=== PATIENT | female | born 1955 | race Caucasian/White ===

== ENCOUNTER 2019-05-26 12:07 | Day surgery (SDC) | payer OTHER ==
[2019-04-30 13:33] VITALS: BMI 44.2
[2019-05-26 13:46] VITALS: TEMP 98.4
[2019-05-26 14:37] VITALS: BP 116/71; PULSE 65
--- NOTE | 2019-05-28 16:46 | PATH ---
Surgical Pathology Report Patient Name: JUANITA ROMERO [facility]. Rec. #: [id number] /Age/Gender: 1955 (Age: 63) / F Account: [id number] Location: [facility]-ENDOSCOPY Taken: 05/26/2019 Received: 05/27/2019 Reported: 05/28/2019 Physicians: James Peralta M.D. Specimen(s) Received A: ERYTHEMA IN ANTRUM B: BODY OF STOMACH C: DISTAL ESOPHAGUS Clinical History Epigastric pain postoperative diagnosis antral erythema Final Diagnosis A. ERYTHEMA IN ANTRUM, BIOPSY: GASTRIC MUCOSA WITH CHRONIC GASTRITIS. IMMUNOSTAIN FOR H. PYLORI IS NEGATIVE. NEGATIVE INTESTINAL METAPLASIA. B. BODY OF STOMACH, BIOPSY: GASTRIC MUCOSA WITH MILD CHRONIC GASTRITIS. IMMUNOSTAIN FOR H. PYLORI IS NEGATIVE. NEGATIVE FOR INTESTINAL METAPLASIA. C. DISTAL ESOPHAGUS, BIOPSY: ESOPHAGEAL MUCOSA WITH REFLUX ESOPHAGITIS. NEGATIVE FOR INTESTINAL METAPLASIA. Electronically Signed Lev Zeng M.D. Gross Description A. Received in formalin, labeled "erythema in antrum" are 2 murillo, irregular soft tissue measuring 0.3 to 0.5 cm. in greatest dimension. The specimen is submitted in toto in one cassette. B. Received in formalin, labeled "body of stomach" are 2 murillo soft tissue measuring 0.2 to 0.3 cm. in greatest dimension. The specimen is submitted in toto in one cassette. C. Received in formalin, labeled "distal esophagus" are 2 murillo, irregular soft tissue measuring 0.2 cm. in greatest dimension. The specimen is submitted in toto in one cassette. __ MATILDE/05/27/2019 ronit/05/27/2019
== END 2019-05-26 14:58 | disposition home or self-care (01) ==
LOC: JASU-ENDO 12:07
PROVIDERS: ATTEND Internal Medicine Gastroenterology
PROC: 0DB68ZX Excision of Stomach, Via Natural or Artificial Opening Endoscopic, Diagnostic (ICD-10-PCS; principal; 2019-05-26 13:00)
DX: K25.9 Gastric ulcer, unspecified as acute or chronic, without hemorrhage or perforation (principal); K31.7 Polyp of stomach and duodenum
CPT/HCPCS: 88305-TC; 88342-TC

== ENCOUNTER 2019-09-29 13:14 | Day surgery (SDC) | payer OTHER ==
[2019-09-26 13:24] VITALS: BMI 44.2
[2019-09-29 15:08] VITALS: TEMP 97.9
[2019-09-29 15:52] VITALS: BP 121/69; PULSE 79
--- NOTE | 2019-10-01 18:33 | PATH ---
Surgical Pathology Report Patient Name: JUANITA ROMERO [facility]. Rec. #: [id number] /Age/Gender: 1955 (Age: 64) / F Account: [id number] Location: [facility]-ENDOSCOPY Taken: 09/29/2019 Received: 09/30/2019 Reported: 10/01/2019 Physicians: James Peralta M.D. Specimen(s) Received A: HEPATIC FLEXURE POLYP B: CECUM POLYP Clinical History History of colon polyps Postoperative diagnosis: Colon polyps, diverticulosis Final Diagnosis A. COLON, HEPATIC FLEXURE, POLYP, POLYPECTOMY: SCANT ORGANIC DEBRIS. NO COLONIC MUCOSA/EPITHELIUM IDENTIFIED. B. CECUM, POLYP, BIOPSY: POLYPOID COLONIC MUCOSA WITH PROMINENT LYMPHOID AGGREGATES. Electronically Signed Farrah Lemos M.D. Gross Description A. Received in formalin, labeled "biopsy hepatic flexure polyp" are 2 murillo, irregular portions of soft tissue measuring 0.1 and 0.3 cm. in greatest dimension. The specimens are submitted in toto in one cassette. B. Received in formalin, labeled "cecum polyp biopsy" is a murillo, irregular portion of soft tissue measuring 0.4 cm. in greatest dimension. The specimen is submitted in toto in one cassette. /09/30/2019 saudi09/30/2019
== END 2019-09-29 15:35 | disposition home or self-care (01) ==
LOC: JASU-ENDO 13:14
PROVIDERS: ATTEND Internal Medicine Gastroenterology
PROC: 0DBH8ZX Excision of Cecum, Via Natural or Artificial Opening Endoscopic, Diagnostic (ICD-10-PCS; 2019-09-29)
PROC: 0DBL8ZX Excision of Transverse Colon, Via Natural or Artificial Opening Endoscopic, Diagnostic (ICD-10-PCS; principal; 2019-09-29 14:00)
DX: Z86.010 Personal history of colon polyps (principal); K57.30 Diverticulosis of large intestine without perforation or abscess without bleeding; D12.3 Benign neoplasm of transverse colon; D12.0 Benign neoplasm of cecum; A63.0 Anogenital (venereal) warts
CPT/HCPCS: 88305-TC

== ENCOUNTER 2020-05-25 17:43 | Emergency (ER) | payer OTHER ==
--- OUTSIDE RECORDS SUMMARY | 2020-05-25 17:47 | XMS ---
:1955 Author Organization [facility] Support Name Relationship Address Phone [facility] [place] [address] CORY ROMERO SON [address] [place] [address] Re-disclosure Warning The records that you are about to access may contain information from federally- assisted alcohol or drug abuse programs. If such information is present, then the following federally mandated warning applies: This information has been disclosed to you from records protected by federal confidentiality rules (42 CFR part 2). The federal rules prohibit you from making any further disclosure of this information unless further disclosure is expressly permitted by the written consent of the person to whom it pertains or as otherwise permitted by 42 CFR part 2. A general authorization for the release of medical or other information is NOT sufficient for this purpose. The Federal rules restrict any use of the information to criminally investigate or prosecute any alcohol or drug abuse patient.The records that you are about to access may contain highly sensitive health information, the redisclosure of which is protected by Article 27-F of the [facility] Public Health law. If you continue you may haveaccess to information: Regarding HIV / AIDS; Provided by facilities licensed or operated by the [facility] Office of Mental Health; or Provided by the [facility] Office for People With Developmental Disabilities. If such information is present, then the following [facility] mandated warning applies: This information has been disclosed to you from confidential records which are protected by state law. State law prohibits you from making any further disclosure of this information without the specific written consent of the person to whom it pertains, or as otherwise permitted by law. Any unauthorized further disclosure in violation of state law may result in a fine or senior living sentence or both. A general authorization for the release of medical or other information is NOT sufficient authorization for further disclosure. Insurance Providers Payer name Policy type Policy ID Covered Covered constitution party's Policy P nicky / Coverage constitution party ID relationship to Membreno Inf ormation type membreno HIP MEDICAID [id number] SP [id number] Results ID Date Data Source [id number] 12/22/2019 12:00:00 AM EDT [facility] Name Value Range Interpretation Code Description Data Sita rce(s) Supporting Document(s ) 2018-nCoV [facility] RNA XXX JEAN-PAUL+probe- Imp This lab was ordered by [facility] and reported by [employer]. ID Date Data Source [id number] 12/22/2019 12:00:00 AM EDT [facility] Name Value Range Interpretation Code Description Data Sita rce(s) Supporting Document(s ) 2018-nCoV [facility] RNA XXX JEAN-PAUL+probe- Imp This lab was ordered by [facility] and reported by [employer] Procedure
--- NOTE | 2020-05-25 17:59 | TELE ---
HPI Do you have fever,cough or shortness of breath?: No - General Reason For Visit: COVID TESTING History Source: Patient Past History - Medical History Allergies/Adverse Reactions: Allergies Allergy/AdvReac Type Severity Reaction Status Date / Time No Known Allergies Allergy Verified 07/27/15 14:45 Home Medications: Ambulatory Orders Aspirin [ASA -] 81 mg PO DAILY 01/26/15 Losartan Potassium 25 mg PO HS 01/26/15 Metoprolol Succinate [Toprol XL -] 25 mg PO DAILY 01/26/15 Omeprazole [Prilosec (RX)] 20 mg PO DAILY 01/26/15 Tab-A-Cheyenne 1 tab PO DAILY 01/26/15 metFORMIN HCL [Metformin ER Osmotic] 500 mg PO BID 01/26/15 Atorvastatin Ca [Lipitor] 40 mg PO HS 04/30/19 Clopidogrel Bisulfate [Plavix] 75 mg PO DAILY 04/30/19 Anemia: No Asthma: No Cancer: No Cardiac Disorders: Yes (5 STENTS 12/2018) CVA: No COPD: No CHF: No Dementia: No Diabetes: Yes (BORDERLINE) GI Disorders: Yes (H/O COLON POLYPS) Disorders: No HTN: No Hypercholesterolemia: Yes Liver Disease: Yes (FATTY LIVER) Seizures: No Thyroid Disease: Yes (HYPOTHYROID; NOT ON MEDS CURRENTLY) - Surgical History Abdominal Surgery: No Appendectomy: No Cardiac Surgery: Yes (STENTS X5) Cholecystectomy: No Lung Surgery: No Neurologic Surgery: No Orthopedic Surgery: Yes (RT CARPAL TUNNEL RELEASE) - Immunization History Immunization Up to Date: No - Psycho-Social/Smoking History Smoking Status: No Smoking History: Former smoker Have you smoked in the past 12 months: No Number of Cigarettes Smoked Daily: 0 If you are a former smoker, when did you quit?: 1980 Review of Systems - Review of Systems Constitutional: No: Fever Respiratory: No: Cough *Physical Exam - Physical Exam Respiratory/Chest: negative: Respiratory Distress Discharge Diagnosis at time of Disposition: Encounter for laboratory testing for COVID-19 virus - Referrals Follow-up Referral(s): Adryan Freire MD [Primary Care Provider] - - Patient Instructions - Discharge Disposition: HOME Condition at time of Disposition: Stable
== END 2020-05-25 17:59 | disposition home or self-care (01) ==
LOC: JVIRT 17:43
DX: Z11.59 Encounter for screening for other viral diseases (principal)
CPT/HCPCS: C9803; Q3014-GT; U0003

== ENCOUNTER 2021-04-08 04:34 | Day surgery (SDC) | payer OTHER ==
[2021-04-06 16:48] VITALS: BMI 51.2
[~2021-04-08 04:34] MED LIST: DEXAMETHASONE SOD PHOSPHATE 20 MG/5 ML VIAL IM ONE; IOHEXOL 180 MG/1 ML ML IJ ONE; LIDOCAINE HCL 1% PRESERVATIVE FREE - 30ML VIAL IJ ONE
[2021-04-08] MEDS ORDERED: LIDOCAINE HCL 1% PRESERVATIVE FREE - 30ML VIAL IJ ONE ×2 (09:28)
[2021-04-08] MEDS ORDERED: IOHEXOL 180 MG/1 ML ML IJ ONE (09:48)
[2021-04-08 10:33] VITALS: BP 90/40; PULSE 86; TEMP 98
== END 2021-04-08 10:45 | disposition home or self-care (01) ==
LOC: JASU-SURG 04:34
PROVIDERS: ATTEND Pain Medicine Pain Medicine
PROC: 3E0R3BZ Introduction of Anesthetic Agent into Spinal Canal, Percutaneous Approach (ICD-10-PCS; principal; 2021-04-08 09:15)
DX: M48.061 Spinal stenosis, lumbar region without neurogenic claudication (principal); M54.16 Radiculopathy, lumbar region; M54.5 Low back pain; Z53.8 Procedure and treatment not carried out for other reasons
CPT/HCPCS: 76000-TC-FY

== ENCOUNTER 2021-06-15 22:09 | Emergency (ER) | payer OTHER ==
[2021-06-15 22:16] VITALS: BP 105/42; PULSE 97; TEMP 98.5; BMI 44.2
[2021-06-15] MEDS ORDERED: CYCLOBENZAPRINE HCL 10 MG TABLET (FP) PO ONE (23:02)
[2021-06-15] MEDS ORDERED: KETOROLAC TROMETHAMINE 30 MG/1 ML VIAL IM ONE (23:02)
[2021-06-15] MEDS ORDERED: CYCLOBENZAPRINE HCL 10 MG TABLET (FP) ONE (23:36)
[2021-06-15] MEDS ORDERED: KETOROLAC TROMETHAMINE 30 MG/1 ML VIAL ONE (23:36)
== END 2021-06-15 23:50 | disposition home or self-care (01) ==
LOC: JER 22:09 → JERFT 22:09 → JER 23:50
PROC: 3E0233Z Introduction of Anti-inflammatory into Muscle, Percutaneous Approach (ICD-10-PCS; principal; 2021-06-15)
DX: M76.51 Patellar tendinitis, right knee (principal)
CPT/HCPCS: 73562-TC-RT-FY; 99284-25

== ENCOUNTER 2021-11-29 04:33 | Day surgery (SDC) | payer OTHER ==
[2021-11-25 16:41] VITALS: BMI 44.2
[~2021-11-29 04:33] MED LIST changes: +DEXAMETHASONE SOD PHOSPHATE 10 MG/1 ML VIAL IVPUSH ONE; -DEXAMETHASONE SOD PHOSPHATE 20 MG/5 ML VIAL IM ONE; -LIDOCAINE HCL 1% PRESERVATIVE FREE - 30ML VIAL IJ ONE
[2021-11-29] MEDS ORDERED: LIDOCAINE HCL/PF 1% SDV 5ML VIAL ONE (07:39)
[2021-11-29] MEDS ORDERED: DEXAMETHASONE SOD PHOSPHATE 10 MG/1 ML VIAL ONE (07:39)
[2021-11-29] MEDS ORDERED: LIDOCAINE HCL 1% PRESERVATIVE FREE - 30ML VIAL IJ ONE (09:34)
[2021-11-29] MEDS ORDERED: IOHEXOL 180 MG/1 ML ML IJ ONE ×2 (09:35)
[2021-11-29] MEDS ORDERED: DEXAMETHASONE SOD PHOSPHATE 10 MG/1 ML VIAL IVPUSH ONE (09:44)
[2021-11-29 11:50] VITALS: PULSE 80; TEMP 97.2
[2021-11-29 11:59] VITALS: BP 110/60
== END 2021-11-29 10:30 | disposition home or self-care (01) ==
LOC: JASU-SURG 04:33
PROVIDERS: ATTEND Pain Medicine Pain Medicine
PROC: 3E0R33Z Introduction of Anti-inflammatory into Spinal Canal, Percutaneous Approach (ICD-10-PCS; 2021-11-29)
PROC: B01BYZZ Fluoroscopy of Spinal Cord using Other Contrast (ICD-10-PCS; 2021-11-29)
PROC: 3E0R3BZ Introduction of Anesthetic Agent into Spinal Canal, Percutaneous Approach (ICD-10-PCS; principal; 2021-11-29 09:00)
DX: M54.16 Radiculopathy, lumbar region (principal); M48.061 Spinal stenosis, lumbar region without neurogenic claudication; E11.9 Type 2 diabetes mellitus without complications
CPT/HCPCS: J1100

== ENCOUNTER 2022-01-24 04:23 | Day surgery (SDC) | payer OTHER ==
[2022-01-06 10:59] VITALS: BMI 44.2
[2022-01-24] MEDS ORDERED: LIDOCAINE HCL/PF 1% SDV 5ML VIAL ONE (07:18)
[2022-01-24] MEDS ORDERED: BUPIVACAINE HCL/PF 0.75% 10 ML VIAL ONE (07:18)
[2022-01-24] MEDS ORDERED: LIDOCAINE HCL 1%, 10 MG/ML (50 mL VIAL) NR ONE (14:12)
[2022-01-24] MEDS ORDERED: BUPIVACAINE HCL/PF 0.75% 10 ML VIAL NR ONE (14:13)
[2022-01-24 15:23] VITALS: BP 111/54; PULSE 88; TEMP 98
== END 2022-01-24 15:10 | disposition home or self-care (01) ==
LOC: JASU-SURG 04:23
PROVIDERS: ATTEND Pain Medicine Pain Medicine
PROC: BR16YZZ Fluoroscopy of Lumbar Facet Joint(s) using Other Contrast (ICD-10-PCS; 2022-01-24)
PROC: 3E0T3BZ Introduction of Anesthetic Agent into Peripheral Nerves and Plexi, Percutaneous Approach (ICD-10-PCS; principal; 2022-01-24 14:00)
DX: M47.816 Spondylosis without myelopathy or radiculopathy, lumbar region (principal)
CPT/HCPCS: 76000-TC-FY

== ENCOUNTER 2022-02-21 03:55 | Day surgery (SDC) | payer OTHER ==
[2022-02-16 13:09] VITALS: BMI 44.2
[2022-02-21] MEDS ORDERED: LIDOCAINE HCL/PF 1% SDV 5ML VIAL ONE (08:06)
[2022-02-21] MEDS ORDERED: DEXAMETHASONE SOD PHOSPHATE 10 MG/1 ML VIAL ONE (08:07)
[2022-02-21] MEDS ORDERED: BUPIVACAINE HCL/PF 0.75% 10 ML VIAL ONE (08:18)
[2022-02-21] MEDS ORDERED: BUPIVACAINE HCL/PF 0.75% 10 ML VIAL NR ONE (13:14)
[2022-02-21] MEDS ORDERED: LIDOCAINE 1% P/F 10 MG/ML VIAL INF ONE (13:16)
[2022-02-21 13:52] VITALS: BP 107/59; PULSE 86; TEMP 98.2
== END 2022-02-21 13:54 | disposition home or self-care (01) ==
LOC: JASU-SURG 03:55
PROVIDERS: ATTEND Pain Medicine Pain Medicine
PROC: 3E0T33Z Introduction of Anti-inflammatory into Peripheral Nerves and Plexi, Percutaneous Approach (ICD-10-PCS; 2022-02-21)
PROC: 3E0T3BZ Introduction of Anesthetic Agent into Peripheral Nerves and Plexi, Percutaneous Approach (ICD-10-PCS; principal; 2022-02-21 10:45)
DX: M47.816 Spondylosis without myelopathy or radiculopathy, lumbar region (principal)
CPT/HCPCS: 76000-TC-FY; J1100

== ENCOUNTER 2022-03-21 04:18 | Day surgery (SDC) | payer OTHER ==
[2022-03-17 15:50] VITALS: BMI 44.2
[2022-03-21] MEDS ORDERED: LIDOCAINE HCL/PF 1% SDV 5ML VIAL ONE ×2 (07:30→07:31)
[2022-03-21] MEDS ORDERED: BUPIVACAINE HCL/PF 0.75% 10 ML VIAL ONE (07:30)
[2022-03-21] MEDS ORDERED: BUPIVACAINE HCL/PF 0.5% (5MG/ML) 10 ML VIAL IJ ONE (07:53)
[2022-03-21] MEDS ORDERED: BUPIVACAINE HCL/PF 0.75% 10 ML VIAL PNB ONE ×3 (07:53→08:53)
[2022-03-21] MEDS ORDERED: LIDOCAINE HCL 1% PRESERVATIVE FREE - 30ML VIAL IJ ONE (07:54)
[2022-03-21 07:55] VITALS: RESP 18
[2022-03-21] MEDS ORDERED: LIDOCAINE HCL/PF 2% SDV 5ML VIAL ONE (08:39)
[2022-03-21] MEDS ORDERED: DEXAMETHASONE SOD PHOSPHATE 10 MG/1 ML VIAL ONE (08:39)
[2022-03-21] MEDS ORDERED: LIDOCAINE HCL/PF 2% SDV 5ML VIAL INF ONE ×2 (08:53→09:15)
[2022-03-21] MEDS ORDERED: LIDOCAINE 1% P/F 10 MG/ML VIAL INF ONE (08:53)
[2022-03-21] MEDS ORDERED: DEXAMETHASONE SOD PHOSPHATE 10 MG/1 ML VIAL IVPUSH ONE ×2 (08:53→09:26)
[2022-03-21 10:52] VITALS: BP 126/66; PULSE 84; TEMP 97.1
== END 2022-03-21 10:10 | disposition home or self-care (01) ==
LOC: JASU-SURG 04:18
PROVIDERS: ATTEND Pain Medicine Pain Medicine
PROC: 3E0T3TZ Introduction of Destructive Agent into Peripheral Nerves and Plexi, Percutaneous Approach (ICD-10-PCS; principal; 2022-03-21 09:00)
DX: M47.816 Spondylosis without myelopathy or radiculopathy, lumbar region (principal)
CPT/HCPCS: 76000-TC-FY; J1100

== ENCOUNTER 2022-04-21 04:06 | Day surgery (SDC) | payer OTHER ==
[2022-04-20 07:34] VITALS: BMI 44.1
[2022-04-21 06:17] VITALS: RESP 18
[2022-04-21] MEDS ORDERED: BUPIVACAINE HCL/PF 0.75% 10 ML VIAL ONE (07:23)
[2022-04-21] MEDS ORDERED: LIDOCAINE HCL/PF 1% SDV 5ML VIAL ONE (07:24)
[2022-04-21] MEDS ORDERED: DEXAMETHASONE SOD PHOSPHATE 10 MG/1 ML VIAL ONE (07:24)
[2022-04-21] MEDS ORDERED: LIDOCAINE HCL/PF 2% SDV 5ML VIAL ONE (07:38)
[2022-04-21] MEDS ORDERED: BUPIVACAINE HCL/PF 0.75% 10 ML VIAL PNB ONE (08:30)
[2022-04-21] MEDS ORDERED: DEXAMETHASONE SOD PHOSPHATE 10 MG/1 ML VIAL IVPUSH ONE (08:30)
[2022-04-21] MEDS ORDERED: LIDOCAINE HCL 1% PRESERVATIVE FREE - 30ML VIAL IJ ONE (08:30)
[2022-04-21] MEDS ORDERED: LIDOCAINE HCL/PF 2% SDV 5ML VIAL INF ONE (08:30)
[2022-04-21 10:05] VITALS: BP 127/59; PULSE 89; TEMP 98
== END 2022-04-21 09:30 | disposition home or self-care (01) ==
LOC: JASU-SURG 04:06
PROVIDERS: ATTEND Pain Medicine Pain Medicine
PROC: 3E0T3TZ Introduction of Destructive Agent into Peripheral Nerves and Plexi, Percutaneous Approach (ICD-10-PCS; principal; 2022-04-21 08:00)
PROC: BR16YZZ Fluoroscopy of Lumbar Facet Joint(s) using Other Contrast (ICD-10-PCS; 2022-04-21 08:00)
DX: M47.816 Spondylosis without myelopathy or radiculopathy, lumbar region (principal)
CPT/HCPCS: 76000-TC-FY; J1100

== ENCOUNTER 2022-06-20 04:28 | Day surgery (SDC) | payer OTHER ==
[2022-06-16 11:16] VITALS: BMI 44.1
[2022-06-20] MEDS ORDERED: LIDOCAINE HCL/PF 2% SDV 5ML VIAL ONE ×3 (07:37→11:12)
[2022-06-20] MEDS ORDERED: LIDOCAINE HCL/PF 1% SDV 5ML VIAL ONE ×2 (07:37→11:10)
[2022-06-20] MEDS ORDERED: LIDOCAINE HCL 2% (20ML MULTI-DOSE VIAL) ONE (11:11)
[2022-06-20] MEDS ORDERED: ceFAZolin SODIUM 1 GM VIAL ONE (11:16)
[2022-06-20] MEDS ORDERED: ONDANSETRON 4 MG/2 ML VIAL ONE (11:16)
[2022-06-20] MEDS ORDERED: MIDAZOLAM HCL 2 MG/2 ML SINGLE DOSE VIAL ONE (11:16)
[2022-06-20] MEDS ORDERED: DEXAMETHASONE SOD PHOSPHATE 10 MG/1 ML VIAL ONE (11:23)
[2022-06-20] MEDS ORDERED: ceFAZolin SODIUM 1 GM VIAL IVPB ONE (11:32)
[2022-06-20] MEDS ORDERED: LIDOCAINE HCL/PF 2% SDV 5ML VIAL INF ONE ×2 (11:41)
[2022-06-20] MEDS ORDERED: LIDOCAINE HCL 1% PRESERVATIVE FREE - 30ML VIAL IJ ONE ×3 (11:41)
[2022-06-20] MEDS ORDERED: IOHEXOL 180 MG/1 ML ML IJ ONE ×2 (11:42)
[2022-06-20] MEDS ORDERED: DEXAMETHASONE SOD PHOSPHATE 10 MG/1 ML VIAL IVPUSH ONE ×2 (11:43→12:21)
[2022-06-20 12:59] VITALS: RESP 20
[2022-06-20 14:20] VITALS: BP 145/74; PULSE 90; TEMP 98
== END 2022-06-20 14:00 | disposition home or self-care (01) ==
LOC: JASU-SURG 04:28
PROVIDERS: ATTEND Pain Medicine Pain Medicine
PROC: BR19YZZ Fluoroscopy of Lumbar Spine using Other Contrast (ICD-10-PCS; 2022-06-20)
PROC: 01NB3ZZ Release Lumbar Nerve, Percutaneous Approach (ICD-10-PCS; principal; 2022-06-20 09:30)
DX: M48.062 Spinal stenosis, lumbar region with neurogenic claudication (principal); E11.9 Type 2 diabetes mellitus without complications; I10 Essential (primary) hypertension
CPT/HCPCS: 0275T; C1889; 76000-TC-FY; 88304-TC; J1100

== ENCOUNTER 2022-08-08 04:28 | Day surgery (SDC) | payer OTHER ==
[2022-08-04 12:48] VITALS: BMI 44.1
[~2022-08-08 04:28] MED LIST changes: +BUPIVACAINE HCL/PF 0.5% (5MG/ML) 10 ML VIAL IJ ONE; -DEXAMETHASONE SOD PHOSPHATE 10 MG/1 ML VIAL IVPUSH ONE; -IOHEXOL 180 MG/1 ML ML IJ ONE
[2022-08-08] MEDS ORDERED: TRIAMCINOLONE ACET 40MG/1ML VIAL ONE (07:10)
[2022-08-08] MEDS ORDERED: BUPIVACAINE HCL/PF 0.5% (5MG/ML) 10 ML VIAL ONE (07:10)
[2022-08-08] MEDS ORDERED: LIDOCAINE HCL/PF 1% SDV 5ML VIAL ONE (07:10)
[2022-08-08] MEDS ORDERED: LIDOCAINE HCL 1% PRESERVATIVE FREE - 30ML VIAL IJ ONE (11:03)
[2022-08-08] MEDS ORDERED: BUPIVACAINE HCL/PF 0.5% (5MG/ML) 10 ML VIAL IJ ONE (11:03)
[2022-08-08] MEDS ORDERED: IOHEXOL 180 MG/1 ML ML IJ ONE (11:03)
[2022-08-08] MEDS ORDERED: TRIAMCINOLONE ACET 40MG/1ML VIAL IM ONE (11:03)
[2022-08-08] MEDS ORDERED: ACETAMINOPHEN 325 MG TABLET (FP) ONE (11:28)
[2022-08-08 14:11] VITALS: RESP 18
[2022-08-08 14:13] VITALS: BP 126/58; PULSE 72; TEMP 98.2
[2022-08-08] MEDS ORDERED: ACETAMINOPHEN 325 MG TABLET (FP) PO ONE (14:15)
== END 2022-08-08 12:05 | disposition home or self-care (01) ==
LOC: JASU-SURG 04:28
PROVIDERS: ATTEND Pain Medicine Pain Medicine
PROC: 3E0U3BZ Introduction of Anesthetic Agent into Joints, Percutaneous Approach (ICD-10-PCS; 2022-08-08)
PROC: 3E0U33Z Introduction of Anti-inflammatory into Joints, Percutaneous Approach (ICD-10-PCS; principal; 2022-08-08 11:00)
DX: M53.3 Sacrococcygeal disorders, not elsewhere classified (principal)
CPT/HCPCS: 76000-TC-FY

== ENCOUNTER 2022-10-24 04:11 | Day surgery (SDC) | payer OTHER ==
[2022-10-23 11:36] VITALS: BMI 44.1
[~2022-10-24 04:11] MED LIST changes: -BUPIVACAINE HCL/PF 0.5% (5MG/ML) 10 ML VIAL IJ ONE; +LIDOCAINE HCL 1% PRESERVATIVE FREE - 30ML VIAL IJ ONE; +LIDOCAINE HCL 2% (50ML VIAL) NR ONE
[2022-10-24] MEDS ORDERED: LIDOCAINE HCL/PF 2% SDV 5ML VIAL ONE (07:25)
[2022-10-24] MEDS ORDERED: LIDOCAINE HCL/PF 1% SDV 5ML VIAL ONE (07:25)
[2022-10-24] MEDS ORDERED: BUPIVACAINE HCL/PF 0.25% (2.5MG/ML) 10 ML VIAL ONE (07:25)
[2022-10-24] MEDS ORDERED: LIDOCAINE HCL 1% PRESERVATIVE FREE - 30ML VIAL IJ ONE ×2 (09:01)
[2022-10-24] MEDS ORDERED: LIDOCAINE HCL/PF 2% SDV 5ML VIAL INF ONE (09:03)
[2022-10-24 09:37] VITALS: RESP 20
[2022-10-24 10:33] VITALS: BP 119/67; PULSE 88; TEMP 97.7
== END 2022-10-24 10:10 | disposition home or self-care (01) ==
LOC: JASU-SURG 04:11
PROVIDERS: ATTEND Pain Medicine Pain Medicine
PROC: 01HY3MZ Insertion of Neurostimulator Lead into Peripheral Nerve, Percutaneous Approach (ICD-10-PCS; principal; 2022-10-24 09:00)
DX: G89.4 Chronic pain syndrome (principal)
CPT/HCPCS: 64555; C1778; 76000-TC-FY

== ENCOUNTER 2022-11-13 07:49 | Emergency (ER) | payer OTHER ==
[2022-11-13 08:00] VITALS: BMI 45.1
[2022-11-13] MEDS ORDERED: LIDOCAINE VISCOUS 2% ORAL/TOP 15 ML UNIT-DOSE CUP MM ONE (08:23)
[2022-11-13] MEDS ORDERED: MAG HYDROX/AL HYDROX/SIMETH 30 ML UNIT-DOSE CUP PO ONE (08:23)
[2022-11-13] MEDS ORDERED: ACETAMINOPHEN 1000 MG/100 ML BAG IVPB ONE (08:23)
[2022-11-13] MEDS ORDERED: FAMOTIDINE 20 MG/50 ML IVPB 20 MG/50 ML MG IVPB ONE ×2 (08:23→08:40)
[2022-11-13] MEDS ORDERED: ACETAMINOPHEN INJECTION 100 ML IVPB ONE (08:39)
[2022-11-13] MEDS ORDERED: LIDOCAINE VISCOUS 2% ORAL/TOP 15 ML UNIT-DOSE CUP ONE (08:39)
[2022-11-13] MEDS ORDERED: MAG HYDROX/AL HYDROX/SIMETH 30 ML UNIT-DOSE CUP ONE (08:40)
[2022-11-13 09:21] LABS: BASO % 0.4 % (0-2.0); EOS % 2.7 % (0-4.5); HEMATOCRIT 34.1 % (32.4-45.2); HEMOGLOBIN 11.3 GM/dL (10.7-15.3); LYMPH % 15.7 % (8-40); MEAN CELL VOLUME 81.9 fl (80-96); MEAN PLT VOLUME 8.7 fl (7.5-11.1); MONO % 5.4 % (3.8-10.2); NEUT % 75.8 % (42.8-82.8); PLATELET COUNT 271 10^3/uL (134-434); RBC 4.17 M/mm3 (3.60-5.2); RDW 16.4 % (11.6-15.6); WHITE BLOOD COUNT 7.4 K/mm3 (4.0-10.0)
[2022-11-13 09:48] LABS: BLOOD UREA NITROGEN 14.1 mg/dL (7-18); CALCIUM 8.8 mg/dL (8.5-10.1)
[2022-11-13 09:50] LABS: ALBUMIN 3.6 g/dl (3.4-5.0)
[2022-11-13 09:52] LABS: CREATININE 1.4 mg/dL (0.55-1.3)
[2022-11-13 09:54] LABS: BILIRUBIN,TOTAL 1.5 mg/dL (0.2-1); TOT PROT 6.8 g/dl (6.4-8.2)
[2022-11-13 11:02] VITALS: BP 128/66; PULSE 78; RESP 20; TEMP 98.5
== END 2022-11-13 12:10 | disposition home or self-care (01) ==
LOC: JER 07:49
PROC: 3E033GC Introduction of Other Therapeutic Substance into Peripheral Vein, Percutaneous Approach (ICD-10-PCS; principal; 2022-11-13)
PROC: 3E033NZ Introduction of Analgesics, Hypnotics, Sedatives into Peripheral Vein, Percutaneous Approach (ICD-10-PCS; 2022-11-13)
DX: K80.20 Calculus of gallbladder without cholecystitis without obstruction (principal); R10.13 Epigastric pain; R07.9 Chest pain, unspecified; R06.02 Shortness of breath; R11.0 Nausea; Z20.822 Contact with and (suspected) exposure to COVID-19
CPT/HCPCS: 0241U-QW; 36415; 71045-TC-FY; 76705-TC; 80053; 83690; 84484; 85025; 93005; 93010; 99285-25

== ENCOUNTER 2022-11-21 04:03 | Day surgery (SDC) | payer OTHER ==
[2022-11-14 17:09] VITALS: BMI 44.1
[~2022-11-21 04:03] MED LIST changes: +ACETAMINOPHEN 500 MG TABLET (FP) PO PRN; +LIDOCAINE 1% P/F 10 MG/ML VIAL PNB ONE; -LIDOCAINE HCL 1% PRESERVATIVE FREE - 30ML VIAL IJ ONE; -LIDOCAINE HCL 2% (50ML VIAL) NR ONE
[2022-11-21 06:43] VITALS: RESP 18; TEMP 97.8
[2022-11-21] MEDS ORDERED: BUPIVACAINE HCL/PF 0.25% (2.5MG/ML) 10 ML VIAL ONE (07:08)
[2022-11-21] MEDS ORDERED: LIDOCAINE HCL/PF 1% SDV 5ML VIAL ONE (07:08)
[2022-11-21] MEDS ORDERED: BUPIVACAINE HCL/PF 0.75% 10 ML VIAL ONE (07:08)
[2022-11-21] MEDS ORDERED: DEXAMETHASONE SOD PHOSPHATE 10 MG/1 ML VIAL ONE (07:09)
[2022-11-21] MEDS ORDERED: LIDOCAINE 1% P/F 10 MG/ML VIAL PNB ONE (08:33)
[2022-11-21 09:06] VITALS: BP 122/59; PULSE 85
[2022-11-21] MEDS ORDERED: ACETAMINOPHEN 500 MG TABLET (FP) PO PRN (16:00)
== END 2022-11-21 09:17 | disposition home or self-care (01) ==
LOC: JASU-SURG 04:03
PROVIDERS: ATTEND Pain Medicine Pain Medicine
PROC: 05H Upper Veins, Insertion (ICD-10-PCS; principal; 2022-11-21 08:00)
DX: G89.4 Chronic pain syndrome (principal); M54.50 Low back pain, unspecified
CPT/HCPCS: 64555; C1778; 76000-TC-FY; J1100

== ENCOUNTER 2023-02-16 05:27 | Day surgery (SDC) | payer OTHER ==
[2023-02-15 12:50] VITALS: BMI 44.2
[2023-02-16] MEDS ORDERED: LIDOCAINE HCL/PF 2% SDV 5ML VIAL ONE (07:16)
[2023-02-16] MEDS ORDERED: ACETAMINOPHEN 500 MG TABLET (FP) PO PRN (11:00)
[2023-02-16] MEDS ORDERED: LIDOCAINE HCL/PF 1% SDV 5ML VIAL ONE ×2 (11:04)
[2023-02-16 12:23] VITALS: BP 116/50; PULSE 80; RESP 18; TEMP 98.2
== END 2023-02-16 16:00 | disposition home or self-care (01) ==
LOC: JASU-SURG 05:27
PROVIDERS: ATTEND Pain Medicine Pain Medicine
DX: Z53.8 Procedure and treatment not carried out for other reasons (principal)

== ENCOUNTER 2024-07-18 21:45 | Inpatient (IN) | payer OTHER, MEDICARE ==
[2024-07-18] MEDS ORDERED: morphine SULFATE 4 MG/ML VIAL ONE (22:35)
[2024-07-18] MEDS ORDERED: ACETAMINOPHEN INJECTION 100 ML ONE (22:36)
[2024-07-18] MEDS ORDERED: MAG HYDROX/AL HYDROX/SIMETH 30 ML UNIT-DOSE CUP ONE (22:36)
[2024-07-18] MEDS ORDERED: FAMOTIDINE 20 MG/50 ML IVPB 20 MG/50 ML MG IVPB ONE (22:36)
[2024-07-18] MEDS ORDERED: ONDANSETRON 4 MG/2 ML VIAL ONE (22:41)
[2024-07-18 22:44] LABS: HEMATOCRIT 44.9 % (32.4-45.2); HEMOGLOBIN 14.8 GM/dL (10.7-15.3); MCH 28.4 pg (25.7-33.7); MCHC 32.9 g/dl (32.0-36.0); MEAN CELL VOLUME 86.3 fl (80-96); MEAN PLT VOLUME 8.7 fl (7.5-11.1); NEUT % 81.3 % (42.8-82.8); PLATELET COUNT 354 10^3/uL (134-434); RDW 15.1 % (11.6-15.6); WHITE BLOOD COUNT 14.1 K/mm3 (4.0-10.0)
[2024-07-18 22:45] LABS: BASO % 0.5 % (0-2.0); EOS % 0.9 % (0-4.5); MONO % 5.3 % (3.8-10.2)
[2024-07-18 22:51] LABS: INR 1.16 (0.83-1.09)
[2024-07-18 22:53] LABS: ACTIVATED PTT 34.8 SECONDS (25.2-36.5)
[2024-07-18] MEDS: ACETAMINOPHEN 1000 MG/100 ML BAG IVPB ONE (22:53)
[2024-07-18] MEDS: morphine CARPU-JECT 4 MG/1 ML DISP.SYRIN IVPUSH ONE (22:54)
[2024-07-18] MEDS: MAG HYDROX/AL HYDROX/SIMETH 30 ML UNIT-DOSE CUP PO ONE (22:54)
[2024-07-18] MEDS: ONDANSETRON 4 MG/2 ML VIAL IVPUSH ONE (23:00)
[2024-07-18 23:03] LABS: POTASSIUM 4.7 mmol/L (3.5-5.1)
[2024-07-18 23:05] LABS: ALBUMIN 4.4 g/dl (3.4-5.0); MAGNESIUM 2.1 mg/dL (1.8-2.4)
[2024-07-18 23:08] LABS: CREATININE 1.6 mg/dL (0.55-1.3)
[2024-07-18 23:10] LABS: BILIRUBIN,TOTAL 2.3 mg/dL (0.2-1)
[2024-07-18] MEDS: FAMOTIDINE 20 MG/50 ML IVPB 20 MG/50 ML MG IVPB ONE (23:30)
[2024-07-19] MEDS ORDERED: CEFTRIAXONE 1 G/50 ML PREMIX 50 ML IVPB ONE (01:22)
[2024-07-19] MEDS: CEFTRIAXONE 1,000 MG in DEXTROSE 5%-WATER - 50 ML IVPB ONE (02:10)
[2024-07-19] MEDS: SODIUM CHLORIDE 1,000 ML IV SCH (02:43)
[2024-07-19] MEDS ORDERED: morphine SULFATE 4 MG/ML VIAL IVPUSH PRN (04:00)
[2024-07-19 05:11] VITALS: BMI 44.2
[2024-07-19 09:06] LABS: BASO % 0.4 % (0-2.0); EOS % 0.7 % (0-4.5); HEMATOCRIT 38.8 % (32.4-45.2); HEMOGLOBIN 12.8 GM/dL (10.7-15.3); LYMPH % 15.9 % (8-40); MCH 28.5 pg (25.7-33.7); MCHC 32.9 g/dl (32.0-36.0); MEAN CELL VOLUME 86.6 fl (80-96); MEAN PLT VOLUME 8.8 fl (7.5-11.1); MONO % 6.9 % (3.8-10.2); NEUT % 76.1 % (42.8-82.8); PLATELET COUNT 286 10^3/uL (134-434); RBC 4.48 M/mm3 (3.60-5.2); RDW 15.2 % (11.6-15.6); WHITE BLOOD COUNT 8.7 K/mm3 (4.0-10.0)
[2024-07-19] MEDS: LOSARTAN POTASSIUM 25 MG TABLET PO SCH (09:14)
[2024-07-19] MEDS: DULoxetine HCL 20 MG CAPSULE.DR PO SCH (09:14)
[2024-07-19] MEDS: PANTOPRAZOLE SODIUM 40 MG VIAL IVPUSH SCH (09:14)
[2024-07-19] MEDS: CLOPIDOGREL BISULFATE 75 MG TABLET (FP) PO SCH (09:14)
[2024-07-19] MEDS: ASPIRIN COATED 81 MG TABLET.EC PO SCH (09:14)
[2024-07-19] MEDS: metoPROLOL SUCCINATE 25 MG TAB.SR.24H (FP) PO SCH (09:14)
[2024-07-19 09:26] LABS: POTASSIUM 4.2 mmol/L (3.5-5.1)
[2024-07-19 09:35] LABS: ALBUMIN 3.7 g/dl (3.4-5.0); BLOOD UREA NITROGEN 25.4 mg/dL (7-18); CALCIUM 9.5 mg/dL (8.5-10.1)
[2024-07-19 09:37] LABS: CREATININE 1.3 mg/dL (0.55-1.3)
[2024-07-19 09:39] LABS: BILIRUBIN,TOTAL 3.8 mg/dL (0.2-1); TOT PROT 6.8 g/dl (6.4-8.2)
[2024-07-19] MEDS ORDERED: HEPARIN NA (PORCINE) 5,000 UNITS/ML 1ML VIAL SQ SCH (10:00)
[2024-07-19] MEDS: CEFTRIAXONE 2 GM-D5W BAG 2 GM/50 ML BAG IVPB SCH (10:10)
[2024-07-19] MEDS: ATORVASTATIN CA 40 MG TABLET (FP) PO SCH (21:55)
[2024-07-20 11:02] LABS: BASO % 0.5 % (0-2.0); EOS % 3.8 % (0-4.5); HEMATOCRIT 37.5 % (32.4-45.2); HEMOGLOBIN 12.4 GM/dL (10.7-15.3); LYMPH % 13.8 % (8-40); MCH 28.5 pg (25.7-33.7); MEAN CELL VOLUME 86.5 fl (80-96); MEAN PLT VOLUME 8.3 fl (7.5-11.1); NEUT % 75.9 % (42.8-82.8); PLATELET COUNT 262 10^3/uL (134-434); RBC 4.34 M/mm3 (3.60-5.2); RDW 15.3 % (11.6-15.6); WHITE BLOOD COUNT 6.1 K/mm3 (4.0-10.0)
[2024-07-20 11:24] LABS: POTASSIUM 4.5 mmol/L (3.5-5.1)
[2024-07-20 11:26] LABS: CALCIUM 9.2 mg/dL (8.5-10.1)
[2024-07-20 11:27] LABS: ALBUMIN 3.5 g/dl (3.4-5.0)
[2024-07-20 11:30] LABS: CREATININE 1.3 mg/dL (0.55-1.3)
[2024-07-20 11:31] LABS: BILIRUBIN,TOTAL 3.9 mg/dL (0.2-1); TOT PROT 6.6 g/dl (6.4-8.2)
[2024-07-20] MEDS: morphine CARPU-JECT 2 MG/1 ML DISP.SYRIN IVPUSH ONE (14:59)
[2024-07-20] MEDS: INSULIN ASPART SLIDING SCALE (NOVOLOG) 1 VIAL SQ SCH (16:27)
[2024-07-20] MEDS: metoPROLOL SUCCINATE 25 MG TAB.SR.24H (FP) PO SCH (21:34)
[2024-07-21 07:37] LABS: BASO % 0.5 % (0-2.0); EOS % 4.5 % (0-4.5); HEMATOCRIT 35.9 % (32.4-45.2); HEMOGLOBIN 11.8 GM/dL (10.7-15.3); LYMPH % 13.3 % (8-40); MCH 28.7 pg (25.7-33.7); MCHC 32.9 g/dl (32.0-36.0); MEAN CELL VOLUME 87.3 fl (80-96); MEAN PLT VOLUME 8.7 fl (7.5-11.1); MONO % 7.8 % (3.8-10.2); NEUT % 73.9 % (42.8-82.8); PLATELET COUNT 237 10^3/uL (134-434); RBC 4.12 M/mm3 (3.60-5.2); RDW 14.8 % (11.6-15.6); WHITE BLOOD COUNT 6.1 K/mm3 (4.0-10.0)
[2024-07-21 07:52] LABS: POTASSIUM 4.7 mmol/L (3.5-5.1)
[2024-07-21 07:57] LABS: ALBUMIN 3.2 g/dl (3.4-5.0); BLOOD UREA NITROGEN 13.7 mg/dL (7-18)
[2024-07-21 08:01] LABS: CREATININE 1.4 mg/dL (0.55-1.3)
[2024-07-21 08:02] LABS: TOT PROT 6.2 g/dl (6.4-8.2)
[2024-07-21 08:03] LABS: BILIRUBIN,TOTAL 1.7 mg/dL (0.2-1)
[2024-07-22 08:59] LABS: BASO % 0.3 % (0-2.0); EOS % 4.2 % (0-4.5); HEMATOCRIT 35.9 % (32.4-45.2); LYMPH % 16.7 % (8-40); MCH 28.9 pg (25.7-33.7); MCHC 33.4 g/dl (32.0-36.0); MEAN CELL VOLUME 86.5 fl (80-96); MEAN PLT VOLUME 8.6 fl (7.5-11.1); MONO % 5.8 % (3.8-10.2); PLATELET COUNT 244 10^3/uL (134-434); RBC 4.15 M/mm3 (3.60-5.2); RDW 15.2 % (11.6-15.6); WHITE BLOOD COUNT 7.4 K/mm3 (4.0-10.0)
[2024-07-22 09:11] LABS: POTASSIUM 4.7 mmol/L (3.5-5.1)
[2024-07-22 09:13] LABS: CALCIUM 9.4 mg/dL (8.5-10.1)
[2024-07-22 09:14] LABS: ALBUMIN 3.4 g/dl (3.4-5.0); BLOOD UREA NITROGEN 15.6 mg/dL (7-18)
[2024-07-22 09:17] LABS: CREATININE 1.2 mg/dL (0.55-1.3)
[2024-07-22 09:18] LABS: BILIRUBIN,TOTAL 1.1 mg/dL (0.2-1); TOT PROT 6.3 g/dl (6.4-8.2)
[2024-07-22] MEDS ORDERED: MIDAZOLAM HCL 2 MG/2 ML SINGLE DOSE VIAL ONE (14:28)
[2024-07-22] MEDS: INDOMETHACIN 50 MG RECTAL SUPPOSITORY PR ONE (15:05)
[2024-07-23 09:12] LABS: HEMOGLOBIN 12.3 GM/dL (10.7-15.3); MCH 29.1 pg (25.7-33.7); MCHC 33.1 g/dl (32.0-36.0); MEAN CELL VOLUME 87.9 fl (80-96); MEAN PLT VOLUME 8.7 fl (7.5-11.1); PLATELET COUNT 280 10^3/uL (134-434); RBC 4.22 M/mm3 (3.60-5.2); WHITE BLOOD COUNT 10.1 K/mm3 (4.0-10.0)
[2024-07-23 09:29] LABS: POTASSIUM 4.3 mmol/L (3.5-5.1)
[2024-07-23 09:43] LABS: ALBUMIN 3.5 g/dl (3.4-5.0)
[2024-07-23 09:44] LABS: BLOOD UREA NITROGEN 13.3 mg/dL (7-18)
[2024-07-23 09:47] LABS: CREATININE 1.1 mg/dL (0.55-1.3)
[2024-07-23 09:51] LABS: BILIRUBIN,TOTAL 1.4 mg/dL (0.2-1)
[2024-07-23 09:52] LABS: TOT PROT 6.2 g/dl (6.4-8.2)
[2024-07-23] MEDS: morphine SULFATE 4 MG/ML VIAL IVPUSH ONE (13:11)
[2024-07-23] MEDS: LACTATED RINGERS SOLUTION 1000 ML INFUS.BAG IV ONE (15:20)
[2024-07-23] MEDS: LACTATED RINGERS SOLUTION 1,000 ML/1,000 ML INFUS.BAG IV SCH (17:31)
[2024-07-23] MEDS: SIMETHICONE 80 MG TAB.CHEW (FP) PO PRN (21:46)
[2024-07-24 09:40] LABS: BASO % 0.2 % (0-2.0); EOS % 0.7 % (0-4.5); HEMATOCRIT 37.6 % (32.4-45.2); HEMOGLOBIN 11.9 GM/dL (10.7-15.3); LYMPH % 7.8 % (8-40); MCH 28.2 pg (25.7-33.7); MCHC 31.7 g/dl (32.0-36.0); MEAN PLT VOLUME 8.7 fl (7.5-11.1); MONO % 6.3 % (3.8-10.2); PLATELET COUNT 298 10^3/uL (134-434); RBC 4.22 M/mm3 (3.60-5.2); RDW 15.2 % (11.6-15.6); WHITE BLOOD COUNT 15.1 K/mm3 (4.0-10.0)
[2024-07-24 10:37] LABS: AMYLASE > 1300 U/L (25-115)
[2024-07-24] MEDS ORDERED: LACTATED RINGERS SOLUTION 1,000 ML/1,000 ML INFUS.BAG IV SCH (11:00)
[2024-07-24 11:36] LABS: POTASSIUM 4.2 mmol/L (3.5-5.1)
[2024-07-24 11:51] LABS: ALBUMIN 3.3 g/dl (3.4-5.0); BLOOD UREA NITROGEN 9.4 mg/dL (7-18); CALCIUM 8.9 mg/dL (8.5-10.1)
[2024-07-24 11:54] LABS: BILIRUBIN,DIRECT 0.5 mg/dL (0.0-0.2); CREATININE 1.1 mg/dL (0.55-1.3)
[2024-07-24 11:55] LABS: BILIRUBIN,TOTAL 1.4 mg/dL (0.2-1)
[2024-07-24] MEDS: LACTATED RINGERS SOLUTION 1,000 ML/1,000 ML INFUS.BAG IV SCH (12:11)
[2024-07-24] MEDS: SIMETHICONE 80 MG TAB.CHEW (FP) PO SCH (15:31)
[2024-07-24] MEDS: AMINO ACIDS 4.25%/D5W 1,000 ML IV SCH (18:41)
[2024-07-24] MEDS: ACETAMINOPHEN 1000 MG/100 ML BAG IVPB ONE (22:55)
[2024-07-25 09:54] LABS: BASO % 0.2 % (0-2.0); EOS % 1.3 % (0-4.5); HEMATOCRIT 35.1 % (32.4-45.2); HEMOGLOBIN 11.3 GM/dL (10.7-15.3); LYMPH % 6.3 % (8-40); MCH 28.3 pg (25.7-33.7); MCHC 32.2 g/dl (32.0-36.0); MEAN PLT VOLUME 8.5 fl (7.5-11.1); MONO % 5.2 % (3.8-10.2); PLATELET COUNT 248 10^3/uL (134-434); RBC 3.99 M/mm3 (3.60-5.2); RDW 15.4 % (11.6-15.6); WHITE BLOOD COUNT 13.4 K/mm3 (4.0-10.0)
[2024-07-25 09:56] LABS: HEMATOCRIT 34.7 % (32.4-45.2); HEMOGLOBIN 11.3 GM/dL (10.7-15.3); MCH 28.6 pg (25.7-33.7); MCHC 32.5 g/dl (32.0-36.0); MEAN PLT VOLUME 8.5 fl (7.5-11.1); PLATELET COUNT 253 10^3/uL (134-434); RBC 3.94 M/mm3 (3.60-5.2); RDW 15.2 % (11.6-15.6); WHITE BLOOD COUNT 13.4 K/mm3 (4.0-10.0)
[2024-07-25 10:12] LABS: POTASSIUM 4.1 mmol/L (3.5-5.1)
[2024-07-25 10:14] LABS: ALBUMIN 2.8 g/dl (3.4-5.0); CALCIUM 8.3 mg/dL (8.5-10.1)
[2024-07-25 10:15] LABS: BLOOD UREA NITROGEN 10.8 mg/dL (7-18)
[2024-07-25 10:18] LABS: CREATININE 0.9 mg/dL (0.55-1.3)
[2024-07-25 10:19] LABS: BILIRUBIN,TOTAL 1.2 mg/dL (0.2-1); TOT PROT 5.6 g/dl (6.4-8.2)
[2024-07-25] MEDS: KETOROLAC TROMETHAMINE 30 MG/1 ML VIAL IVPUSH ONE (13:08)
[2024-07-26 08:53] LABS: BASO % 0.3 % (0-2.0); EOS % 2.2 % (0-4.5); HEMATOCRIT 34.8 % (32.4-45.2); HEMOGLOBIN 11.2 GM/dL (10.7-15.3); LYMPH % 8.5 % (8-40); MCH 28.1 pg (25.7-33.7); MCHC 32.1 g/dl (32.0-36.0); MEAN CELL VOLUME 87.8 fl (80-96); MEAN PLT VOLUME 8.2 fl (7.5-11.1); MONO % 5.8 % (3.8-10.2); NEUT % 83.2 % (42.8-82.8); PLATELET COUNT 300 10^3/uL (134-434); RBC 3.96 M/mm3 (3.60-5.2); RDW 15.2 % (11.6-15.6); WHITE BLOOD COUNT 13.4 K/mm3 (4.0-10.0)
[2024-07-26 09:09] VITALS: RESP 18
[2024-07-26 09:12] LABS: POTASSIUM 3.8 mmol/L (3.5-5.1)
[2024-07-26 09:15] LABS: ALBUMIN 2.8 g/dl (3.4-5.0); BLOOD UREA NITROGEN 12.3 mg/dL (7-18)
[2024-07-26 09:17] LABS: CALCIUM 8.7 mg/dL (8.5-10.1)
[2024-07-26 09:19] LABS: BILIRUBIN,TOTAL 0.9 mg/dL (0.2-1); TOT PROT 5.5 g/dl (6.4-8.2)
[2024-07-27 07:03] VITALS: PULSE 85
[2024-07-27 09:52] LABS: BASO % 0.5 % (0-2.0); EOS % 3.4 % (0-4.5); HEMOGLOBIN 10.7 GM/dL (10.7-15.3); LYMPH % 9.9 % (8-40); MCH 28.9 pg (25.7-33.7); MCHC 33.4 g/dl (32.0-36.0); MEAN CELL VOLUME 86.3 fl (80-96); MEAN PLT VOLUME 8.4 fl (7.5-11.1); MONO % 6.4 % (3.8-10.2); NEUT % 79.8 % (42.8-82.8); PLATELET COUNT 328 10^3/uL (134-434); RBC 3.71 M/mm3 (3.60-5.2); RDW 15.4 % (11.6-15.6); WHITE BLOOD COUNT 12.2 K/mm3 (4.0-10.0)
[2024-07-27 10:02] LABS: POTASSIUM 3.8 mmol/L (3.5-5.1)
[2024-07-27 10:10] LABS: ALBUMIN 2.6 g/dl (3.4-5.0); BLOOD UREA NITROGEN 12.1 mg/dL (7-18)
[2024-07-27 10:11] LABS: BILIRUBIN,TOTAL 0.5 mg/dL (0.2-1); CALCIUM 8.7 mg/dL (8.5-10.1); TOT PROT 5.4 g/dl (6.4-8.2)
[2024-07-27 14:17] VITALS: BP 129/69; TEMP 97.7
== END 2024-07-27 14:37 | disposition home or self-care (01) | DRG 444 ==
LOC: JER 21:45 → JERBED 07-19 01:23 → OBSVTOIN 07-19 01:28 → J8W 07-19 03:51
PROVIDERS: ADMIT Internal Medicine; ATTEND Internal Medicine
PROC: 0F798DZ Dilation of Common Bile Duct with Intraluminal Device, Via Natural or Artificial Opening Endoscopic (ICD-10-PCS; 2024-07-22)
PROC: 0FC98ZZ Extirpation of Matter from Common Bile Duct, Via Natural or Artificial Opening Endoscopic (ICD-10-PCS; principal; 2024-07-22 12:45)
DX: K80.42 Calculus of bile duct with acute cholecystitis without obstruction (principal); K85.90 Acute pancreatitis without necrosis or infection, unspecified; Z68.41 Body mass index [BMI] 40.0-44.9, adult; K91.89 Other postprocedural complications and disorders of digestive system; E11.9 Type 2 diabetes mellitus without complications; K21.9 Gastro-esophageal reflux disease without esophagitis; I25.10 Atherosclerotic heart disease of native coronary artery without angina pectoris; F32.A Depression, unspecified; F41.9 Anxiety disorder, unspecified; E03.9 Hypothyroidism, unspecified; E78.5 Hyperlipidemia, unspecified; K76.0 Fatty (change of) liver, not elsewhere classified; I10 Essential (primary) hypertension; E66.01 Morbid (severe) obesity due to excess calories; G47.33 Obstructive sleep apnea (adult) (pediatric)
CPT/HCPCS: 36415; 71045-TC-FY; 74177-TC; 74182-TC; 76000-TC-FY; 76705-TC; 80053; 80076; 82150; 82550; 82962; 83036; 83690; 83735; 84443; 84484; 85025; 85027; 85610; 85730; 87040; 93005; 93010; 99285-25; G0378; J0131